=== PATIENT | female | born 1960 | race Caucasian/White ===

== ENCOUNTER 2018-03-07 13:18 | Emergency (ER) | payer OTHER ==
[~2018-03-07] VITALS: Ht 165.1 cm; Wt 68.0 kg
[2018-03-07] MEDS ORDERED: HYDROCODONE/APAP 5MG-325MG TAB PO ONE (14:15)
[2018-03-07] MEDS ORDERED: KETOROLAC TROMETHAMINE 60 MG/2 ML VIAL IM ONE (14:45)
[2018-03-07] MEDS ORDERED: HYDROCODONE/APAP 5MG-325MG TAB PO NR (14:45)
[2018-03-07] MEDS ORDERED: CYCLOBENZAPRINE HCL 10 MG TAB PO ONE (14:45)
--- NOTE | 2018-03-07 15:07 | Diagnostic Imaging Report ---
PROCEDURE:HIP RIGHT 2-3 VW (+/- PELVIS) INDICATION:Status post fall COMPARISON:None. FINDINGS:There is no fracture or dislocation. Bony mineralization appears intact. Soft tissues are normal. CONCLUSION:No acute bony abnormality. Ramsey gNo D.O. Dictated by: Ramsey Ngo D.O. on 03/07/2018 at 15:19 Electronically approved by: Ramsey Ngo D.O. on 03/07/2018 at 15:19
--- NOTE | 2018-03-07 15:11 | Diagnostic Imaging Report ---
PROCEDURE: L-SPINE COMPLETE COMPARISON: None. INDICATIONS: FALL FINDINGS: Decreased apparent bone mineralization. Mild wedge deformity of the anterior aspect of the T12 vertebral body likely is not an acute finding. The lumbar spine is in anatomic alignment without evidence of spondylolisthesis or spondylolysis. The paraspinal soft tissues are normal. CONCLUSION: Mild wedge deformity of the anterior aspect of the T12 vertebral body. Ramsey Ngo D.O. Dictated by: Ramsey Ngo D.O. on 03/07/2018 at 15:22 Electronically approved by: Ramsey Ngo D.O. on 03/07/2018 at 15:22
== END 2018-03-07 17:21 | disposition home or self-care (01) ==
LOC: EDBD 13:18 → ER 13:18
DX: M54.41 Lumbago with sciatica, right side (principal); W08.XXXA Fall from other furniture, initial encounter; Y92.009 Unspecified place in unspecified non-institutional (private) residence as the place of occurrence of the external cause
CPT/HCPCS: 72110; 73502; 99283; J1885

== ENCOUNTER 2018-06-26 12:26 | Emergency (ER) | payer OTHER ==
[~2018-06-26] VITALS: Ht 165.1 cm; Wt 68.0 kg
--- OUTSIDE RECORDS SUMMARY | 2018-06-26 12:28 | XMS REPORT ---
Author Author [facility] Address Unknown Phone Unavailable Care Team Providers Care [employer] Hand Name Role Phone Max JARAMILLO Unavailable Unavailable Problems This patient has no known problems. Allergies, Adverse Reactions, Alerts This patient has no known allergies or adverse reactions. Medications This patient has no known medications. Results Test Description Test Time Test Comments Text Results Atomic Results Result Comments SP LUMBAR, COMPLETE MIN 4VW 2018-03-07 15:22:00 [place] [address] Patient Name: HUBERT DEL REAL MR #: [id number] : 1960 Age/Sex: 57/F Req #: [id number] [facility] Physician: Ordered by: MARQUITA HORN NP Report #: [id number] Location: ER Room/Bed: Procedure: [id number] DX/SP LUMBAR, COMPLETE MIN 4VW Exam Date: 03/07/18 Exam Time: 1440 REPORT STATUS: Signed PROCEDURE: L-SPINE COMPLETE COMPARISON: None. INDICATIONS: FALL FINDINGS: Decreased apparent bone mineralization. Mild wedge deformity of the anterior aspect of the T12 vertebral body likely is not an acute finding. The lumbar spine is in anatomic alignment without evidence of spondylolisthesis or spondylolysis. The paraspinal soft tissues are normal. CONCLUSION: Mild wedge deformity of the anterior as pect of the T12 vertebral body. Agatha Ngo D.O. Dictated by: Agatha Ngo D.O. on 03/07/2018 at 15:22 Electronically approved by: Agatha Ngo D.O. on 03/07/2018 at 15:22 Dictated By: AGATHA NGO DO 1522 Transcribed By: HUGO on 03/07/18 1522 COPY TO: MARQUITA HORN NP HIP RIGHT 2-3 VW (+/- PELVIS) 2018-03-07 15:19:00 [place] [address] Patient Name: HUBERT DEL REAL MR #: [id number] : 1960 Age/Sex: 57/F Req #: [id number] Adm Physician: Ordered by: MARQUITA HORN NP Report #: [id number] Location: ER Room/Bed: Procedure: [id number] DX/HIP RIGHT 2-3 VW (+/- PELVIS) Exam Date: Exam Time: REPORT STATUS: Signed PROCEDURE: HIP RIGHT 2-3 VW (+/- PELVIS) INDICATION: Status post fall COMPARISON: None. FINDINGS: There is no fracture or dislocation. Bony mineralization appears intact. Soft tissues are normal. CONCLUSION: No acute bony abnormality. Agatha Ngo D.O. Dictated by: Agatha Ngo D.O. on 03/07/2018 at 15:19 Electronically approved by: Agatha Ngo D.O. on 03/07/2018 at 15:19 Dictated By: AGATHA NGO DO 1519 Transcribed By: HUGO on 03/07/18 3590 COPY TO: MARQUITA HORN NP
[2018-06-26 13:42] LABS: BASOPHILS % 0.4 % (0.0-1.0); EOSINOPHILS % 0.3 % (0.0-6.0); HEMATOCRIT 42.2 % (34.2-44.1); HEMOGLOBIN 13.9 g/dL (12.0-16.0); LYMPHOCYTES # (AUTO) 1.4 (1.0-3.2); LYMPHOCYTES % 20.1 % (18.0-39.1); MEAN CORPUSCULAR HEMOGLOBIN 31.1 pg (28-32); MEAN CORPUSCULAR HGB CONC 32.9 g/dL (31-35); MEAN CORPUSCULAR VOLUME 94.4 fL (81-99); MONOCYTES # (AUTO) 0.6 (0.2-0.8); MONOCYTES % 8.3 % (4.4-11.3); NEUTROPHILS # (AUTO) 4.9 (2.1-6.9); NEUTROPHILS % 70.6 % (38.7-80.0); PLATELET COUNT 250 x10e3/uL (140-360); RED BLOOD COUNT 4.47 x10e6/uL (3.6-5.1); RED CELL DISTRIBUTION WIDTH 13.4 % (11.7-14.4)
[2018-06-26 13:55] LABS: ANION GAP 14.9 mmol/L (8-16); BLOOD UREA NITROGEN 14 mg/dL (7-26); BUN/CREATININE RATIO 20 (6-25); CARBON DIOXIDE 21 mmol/L (22-29); CHLORIDE 107 mmol/L (98-107); CREATININE, SERUM 0.69 mg/dL (0.57-1.11); EST GLOMERULAR FILTRATION RATE > 60 ML/MIN (60-); GLUCOSE 88 mg/dL (74-118); POTASSIUM 3.9 mmol/L (3.5-5.1); SODIUM 139 mmol/L (136-145)
[2018-06-26 14:16] LABS: THYROID STIMULATING HORMONE 0.974 uIU/mL (0.350-4.940)
== END 2018-06-26 16:40 | disposition home or self-care (01) ==
LOC: ER 12:26
DX: G47.00 Insomnia, unspecified (principal); F32.9 Major depressive disorder, single episode, unspecified; E03.9 Hypothyroidism, unspecified
CPT/HCPCS: 36415; 80048; 84443; 85025; 99283

== ENCOUNTER → 2018-09-10 | Outpatient (CLI) | payer OTHER ==
--- NOTE | 2018-09-11 10:26 | Diagnostic Imaging Report ---
PROCEDURE: BONE DXA DUAL ENERGY COMPARISON:None. INDICATIONS:Not provided. FINDINGS:Evaluation of the left hip and lumbar spine was performed utilizing DEXA Hologic bone densitometer. The study is technically adequate. The patient does not have any known previous non-traumatic fractures or other risk factors. Left hip total bone mineral density: 0.755 gm/cm2, T-score is -1.5, Z-score is -0.7. Lumbar spine total bone mineral density: 0.867 gm/cm2, T-score is -1.6, Z-score is -0.3. Impression: 1. Bone mineral density of the left hip classified as osteopenia, fracture risk is increased. 2. Bone mineral density of the lumbar spine classified as osteopenia, fracture risk is increased. The patient's fracture risk is compared to an age-matched control. Medical evaluation for secondary causes of low bone mineral density may be appropriate. Correlate clinically for the necessity and timing of the next bone mineral density study. National Osteoporosis Foundation recommendations: Initial therapy to reduce fracture risk in postmenopausal women with -BMD t-scores below -2.0 by central DXA with no risk factors -BMD t-scores below -1.5 by central CXA with one or more risk factors (first deg relative with hip fracture, prior personal fracture, low body weight, smoking) -A prior vertebral or hip fracture AACE n(Clinical Endocrinology) recommends treating the following: Postmenopausal women who have osteoporosis as diagnosed by fragility fractures or t-score -2.5 or below. Postmenopausal women who have risk factors (including hx of hip fracture, low body weight, smoking, risk of falling, high bone turnover, advancing age) and borderline low BMD T-scores of -1.5 or below Adequate intake of calcium (at least 1200mg/day) and vitamin D (400-800IU/day). Regular weight bearing and muscle-strengthening exercises Avoid smoking and excessive alcohol Ramsey Ngo D.O. Dictated by: Ramsey Ngo D.O. on 09/11/2018 at 7:36 Electronically approved by: Ramsey Ngo D.O. on 09/11/2018 at 7:36
--- NOTE | 2018-09-24 08:41 | Diagnostic Imaging Report ---
#[id number] - [id number] #BILATERAL DIGITAL SCREENING MAMMOGRAM WITH CAD: 09/10/2018 CLINICAL: Routine screening. No prior exams were available for comparison. Current study contains 4 films. There are scattered fibroglandular elements in both breasts. Current study was also evaluated with a Computer Aided Detection (CAD) system. Benign appearing calcifications are noted bilaterally. No significant masses, calcifications, or other findings are seen in either breast. IMPRESSION: BENIGN Previous films are not available, we will issue an addendum when films are reviewed. There is no mammographic evidence of malignancy. A 1 year screening mammogram is recommended. The patient will be notified by letter of the results. ANN BAUER M.D. ct/penrad:09/21/2018 16:08:55 [employer]: Laure LEON)(M), [facility] letter sent: Normal Exam Mammogram BI-RADS: 2 Benign
== END ==
LOC: MAMMO 07:33
PROVIDERS: ATTEND Internal Medicine
DX: Z12.31 Encounter for screening mammogram for malignant neoplasm of breast (principal); Z78.0 Asymptomatic menopausal state
CPT/HCPCS: 77067; 77080

== ENCOUNTER → 2018-10-03 | Outpatient (CLI) | payer OTHER ==
--- NOTE | 2018-10-21 14:37 | Polysomnography ---
DATE OF STUDY: 10/03/2018 REFERRING PHYSICIAN: Kathy Gurrola MD DIAGNOSTIC POLYSOMNOGRAM HISTORY OF PRESENT ILLNESS: Ms. Berkowitz is a 58-year-old female with excessive daytime sleepiness, as well as insomnia. Family members state that the patient snores very loudly. The patient has a past medical history of hypothyroidism, bipolar disorder, and back pain. CURRENT MEDICATIONS: Include [place] Thyroid, divalproex, olanzapine, clonazepam. The patient has [place] sleepiness Scale score of 11. BMI is 28.8. The patient presents for an in-lab diagnostic polysomnogram. FINDINGS: Polysomnogram demonstrated total sleep time of 354.5 minutes with sleep efficiency of 76.9%. Sleep onset latency was achieved in 75 minutes with REM latency of 67 minutes. Stage N1 4.5%, N2 69.5%, N3 0%, REM 26.0% of total sleep time. Mild snoring was noted. A total of one obstructive apnea, one central apnea and 2 hypopneas were noted for apnea-hypopnea index of 0.7 events per hour. REM supine sleep was studied well during the study. The lowest oxygen saturation was 91%. A total of 34 periodic limb movements were noted for a periodic limb movement index of 5.8 events per hour. Limb movements were not very significant. Single lead EKG analysis demonstrated normal sinus rhythm and was otherwise unremarkable. INTERPRETATION: This was an abnormal diagnostic polysomnogram due to the presence of: 1. Mild snoring. Multiple factors such as overweight status, thyroid disease, and structural/obstructive abnormalities in the upper airway can be contributory. An evaluation and management of these factors associated with sleep apnea may be helpful. The patient did not require CPAP therapy. Medication may be considered to decrease nasal or oral resistance. An ENT examination may be helpful as it is known that some medications such as sedatives and other substance can decrease snoring if they are used and therefore consideration should be to review the clinical factors behind reports of loud snoring. 2. Hypersomnolence. This overnight polysomnogram did not reveal any significant apnea nor hypopnea nor oxygen desaturation. No significant limb movements were detected on this night. The patient is on medicines that may contribute to hypersomnolence, so recommendations would be to optimize either the timing or the dosing of administration of these medicines if it is felt they are contributing to the daytime hypersomnolence. Sleep hygiene should be optimized. MD BETTINA Jay Certified in Sleep Medicine KEYSHAN/MODL /[id number] MTDGunnar
== END ==
LOC: SLEEP 08:00
PROVIDERS: ATTEND Internal Medicine
DX: G47.30 Sleep apnea, unspecified (principal)
CPT/HCPCS: 95810

== ENCOUNTER → 2019-11-11 | Outpatient (CLI) | payer BC | LOC: MAMMO 16:14 | PROVIDERS: ATTEND Internal Medicine | DX: Z12.31 Encounter for screening mammogram for malignant neoplasm of breast (principal) | CPT/HCPCS: 77067 ==

== ENCOUNTER 2023-10-22 11:25 | Emergency (ER) | payer BC, OTHER ==
[~2023-10-22] VITALS: Ht 165.1 cm; Wt 68.0 kg
[~2023-10-22 11:25] MED LIST: BUPROPION XL150 MG PO; DEPAKOTE ER500 MG PO; INGREZZA80 MG PO; NP THYROID60 MG PO; OMEPRAZOLE40 MG PO; PROPRANOLOL HCL10 MG PO
[2023-10-22 11:36] VITALS: PULSE 79; RESP 17; TEMP 98.4; O2SAT 99
[2023-10-22] MEDS: KETOROLAC TROMETHAMINE 60 MG/2 ML VIAL IM ONE (12:00)
[2023-10-22] MEDS ORDERED: HYDROCODON-ACE1 EA11 PO (13:14)
== END 2023-10-22 13:34 | disposition home or self-care (01) ==
LOC: ER 11:33
DX: S42.251A Displaced fracture of greater tuberosity of right humerus, initial encounter for closed fracture (principal); W01.0XXA Fall on same level from slipping, tripping and stumbling without subsequent striking against object, initial encounter; Y93.01 Activity, walking, marching and hiking; Y92.22 Religious institution as the place of occurrence of the external cause; F41.9 Anxiety disorder, unspecified; F32.A Depression, unspecified
CPT/HCPCS: 29240; 73030; 73060; 99283; J1885